=== PATIENT | female | born 1995 | race Caucasian/White ===

== ENCOUNTER 2018-10-25 19:29 | Outpatient (CLI) | payer OTHER ==
[~2018-10-25] VITALS: Ht 149.9 cm; Wt 90.0 kg
[~2018-10-25 19:29] MED LIST: DOCU-144 PO; FERR134T PO; IBUP-1542 PO; PREN-19 PO
[2018-10-25 20:19] VITALS: Ht 149.9 cm; Wt 90.0 kg
[2018-10-25 20:22] VITALS: BP 110/60; PULSE 93; RESP 15
[2018-10-25] MEDS ORDERED: CEFTRIAXONE 1 GM INJ IM STA (21:37)
[2018-10-25] MEDS ORDERED: LIDOCAINE 1% (MDV) 20 ML INJ IM ONE (22:30)
== END 2018-10-25 22:59 | disposition home or self-care (01) ==
LOC: L-D 19:29 → OBT 19:29
PROVIDERS: ATTEND Obstetrics & Gynecology
DX: O62.9 Abnormality of forces of labor, unspecified (principal); Z3A.37 37 weeks gestation of pregnancy
CPT/HCPCS: 81001; 87086; J0696; Z7610; 96372; G0463

== ENCOUNTER 2018-11-04 11:29 | Inpatient (IN) | payer OTHER ==
[~2018-11-04] VITALS: Ht 149.9 cm; Wt 91.4 kg
[2018-11-04 11:58] VITALS: BP 109/65; PULSE 88; RESP 18; Ht 149.9 cm; Wt 91.4 kg
[2018-11-04] MEDS ORDERED: CARBOPROST 250 MCG INJ IM PRN (14:30)
[2018-11-04] MEDS ORDERED: LIDOCAINE 1% (MPF) 30 ML INJ INJ PRN (14:30)
[2018-11-04] MEDS ORDERED: MISOPROSTOL 200 MCG TAB PR PRN (14:30)
[2018-11-04] MEDS ORDERED: OXYTOCIN 30 UNITS/LR 500 ML IV PRN (14:30)
[2018-11-04] MEDS ORDERED: BUTORPHANOL 2 MG INJ IV PRN ×2 (14:30)
[2018-11-04] MEDS ORDERED: OXYTOCIN 30 UNITS/LR 500 ML IV SCH ×2 (14:30)
[2018-11-04] MEDS ORDERED: MISOPROSTOL 50 MCG CAPSULE PO SCH (14:30)
[2018-11-04] MEDS ORDERED: METHYLERGONOVINE 0.2 MG INJ IM PRN (14:30)
[2018-11-04] MEDS: LACTATED RINGER'S 1,000 ML IV SCH ×2 (15:01→21:24)
[2018-11-04] MEDS: MISOPROSTOL 50 MCG CAPSULE PO PRN ×2 (16:38→22:07)
[2018-11-05] MEDS: MISOPROSTOL 50 MCG CAPSULE PO PRN ×4 (03:37→18:12)
[2018-11-05] MEDS: LACTATED RINGER'S 1,000 ML IV SCH ×3 (05:37→23:18)
[2018-11-05] MEDS ORDERED: OXYTOCIN 30 UNITS/LR 500 ML IV SCH (20:00)
[2018-11-06] MEDS: LACTATED RINGER'S 1,000 ML IV SCH (06:45)
[2018-11-06] MEDS ORDERED: LACTATED RINGER'S 1,000 ML IV* SCH (08:25)
[2018-11-06] MEDS ORDERED: METHYLERGONOVINE 0.2 MG INJ IM PRN (08:30)
[2018-11-06] MEDS ORDERED: BENZOCAINE 20% 56 ML SPRAY TOP PRN (08:30)
[2018-11-06] MEDS ORDERED: MISOPROSTOL 200 MCG TAB PR PRN (08:30)
[2018-11-06] MEDS ORDERED: HYDROCODONE/APAP (5/325) TAB PO PRN (08:30)
[2018-11-06] MEDS ORDERED: CARBOPROST 250 MCG INJ IM PRN (08:30)
[2018-11-06] MEDS ORDERED: LANOLIN HPA 1 PKT TOP PRN (08:30)
[2018-11-06] MEDS ORDERED: OXYTOCIN 30 UNITS/LR 500 ML IV PRN (08:30)
[2018-11-06] MEDS: OXYTOCIN 30 UNITS/LR 500 ML IV SCH ×2 (08:44→12:56)
[2018-11-06 09:45] VITALS: BP 125/56; PULSE 78; RESP 18
[2018-11-06 10:45] VITALS: BP 107/74; PULSE 70; RESP 18
[2018-11-06] MEDS: IBUPROFEN 600 MG TAB PO SCH ×2 (12:00→18:00)
[2018-11-06 16:00] VITALS: BP 116/64; PULSE 75; RESP 16
[2018-11-06 20:20] VITALS: BP 127/87; PULSE 92; RESP 18
[2018-11-07] MEDS: IBUPROFEN 600 MG TAB PO SCH ×5 (00:36→23:44)
[2018-11-07 00:45] VITALS: BP 104/53; PULSE 88; RESP 18
[2018-11-07 04:24] VITALS: BP 95/55; PULSE 77; RESP 18
[2018-11-07 08:30] VITALS: BP 108/69; PULSE 84; RESP 18
[2018-11-07] MEDS: FERROUS SULFATE (EC) 325 MG TAB PO SCH (09:46)
[2018-11-07] MEDS: ASCORBIC ACID 500 MG TAB PO SCH (09:46)
[2018-11-07 16:00] VITALS: BP 119/61; PULSE 73; RESP 18
[2018-11-07 19:40] VITALS: BP 117/69; PULSE 75; RESP 18
[2018-11-08 03:30] VITALS: BP 111/57; PULSE 77; RESP 17
[2018-11-08] MEDS: IBUPROFEN 600 MG TAB PO SCH ×2 (05:46→12:00)
[2018-11-08 08:00] VITALS: BP 103/50; PULSE 79; RESP 18
[2018-11-08] MEDS ORDERED: DIPHTH/TET/ACEL PERTUSS (ADULT) 0.5 ML VIAL IM* ONE (09:00)
[2018-11-08] MEDS: ASCORBIC ACID 500 MG TAB PO SCH (09:44)
[2018-11-08] MEDS: FERROUS SULFATE (EC) 325 MG TAB PO SCH (09:44)
== END 2018-11-08 14:12 | disposition home or self-care (01) | DRG 807 ==
LOC: OBT 11:29 → L-D 11:29 → OBT 14:00 → L-D 14:09 → PP1 11-06 10:02
PROVIDERS: ADMIT Obstetrics & Gynecology; ATTEND Obstetrics & Gynecology
PROC: 10E0XZZ Delivery of Products of Conception, External Approach (ICD-10-PCS; principal; 2018-11-06)
DX: O80 Encounter for full-term uncomplicated delivery (principal); Z37.0 Single live birth; Z3A.38 38 weeks gestation of pregnancy
CPT/HCPCS: 76815; 76818; 85025; 85610; 85730; 86592; 86850; 86900; 86901; 87340; 90715; G0463; J0595; J2590; J7120